=== PATIENT | female | born 1950 | race Caucasian/White ===

== ENCOUNTER → 2018-03-16 | Outpatient (CLI) | payer OTHER ==
[2018-03-16 08:13] LABS: HEMATOCRIT 46.8 % (37.0-47.0); HEMOGLOBIN 15.6 gm/dL (12.0-15.0); MCH 30.9 pg (26.0-34.0); MCHC 33.2 g/dL (28.0-37.0); MCV 92.9 fL (80.0-100.0); RBC 5.04 mil/uL (4.20-5.00); RDW 14.5 % (10.5-14.5); WBC 7.2 thou/uL (4.0-11.0)
[2018-03-16 08:38] LABS: POTASSIUM 4.4 mmol/L (3.5-5.1)
[2018-03-16 08:44] LABS: ALBUMIN 4.1 g/dL (3.4-5.0); TOTAL BILIRUBIN 1.3 mg/dL (<0.1-1.0); TOTAL PROTEIN 7.5 g/dL (6.4-8.2)
== END ==
LOC: CAT 05:53
PROVIDERS: Internal Medicine Cardiovascular Disease
DX: I48.91 Unspecified atrial fibrillation (principal); I70.8 Atherosclerosis of other arteries; N28.1 Cyst of kidney, acquired

== ENCOUNTER 2018-03-19 06:35 | Observation (INO) | payer OTHER ==
[~2018-03-19] VITALS: Ht 167.6 cm; Wt 95.3 kg
[2018-03-19] VITALS (13 sets, daily range): BP systolic 113–138; BP diastolic 72–90
--- NOTE | ~2018-03-19 | D ---
[facility] [place] [address] DISCHARGE SUMMARY Name: EFRAIN BELL Room #: 207-P [facility] Chrissie Benitez#: [id number] Admission: 03/19/18 Attend Phys: Chema Turner MD Discharge: 03/21/18 Date of : 52 Report #: [id number] THIS REPORT FOR: //name// CC: Chema MOTLEY DATE OF SERVICE: 03/21/2018 DISCHARGE DIAGNOSES: 1. Acute inferolateral myocardial infarction. 2. Persistent atrial fibrillation. 3. Hypertension. 4. Dyslipidemia. 5. Diabetes. HISTORY OF PRESENT ILLNESS: The patient is a 67-year-old woman with multiple cardiac risk factors including hypertension, diabetes and dyslipidemia. She was admitted for an ablation of her atrial fibrillation, and shortly after induction of anesthesia, she developed inferolateral ST elevation. Urgent coronary angiography was undertaken, which demonstrated a severe distal right coronary stenosis, which was stented with a 3.0 mm Integrity bare metal stent. Her post-procedural course was uneventful. Troponin levels were 0. Her ejection fraction was normal. DISCHARGE MEDICATIONS: Include aspirin 81 mg daily, Lipitor 40 mg daily, diltiazem CD 240 mg daily, lisinopril 20 mg daily, metoprolol succinate 100 mg daily, Brilinta 90 mg twice daily for 1 month, Cardizem-CD 240 mg daily and Xarelto 20 mg daily. Follow up with Dr. Millard at [facility] in 1 month. Follow up with Dr. Chema Turner in 3 months. DISCHARGE DIET: Low fat, low cholesterol, prudent diabetic diet. Discharge arrangements were made for outpatient cardiac rehabilitation at [facility]. DISCHARGE CONDITION: Stable and improved. <ELECTRONICALLY SIGNED> By: Robert Monroy MD, [facility] 03/25/18 0733 0823 0847 Robert Monroy MD, FAC /nt
--- NOTE | ~2018-03-19 | EKG ---
[address] [address] ELECTROCARDIOGRAM REPORT Name: EFRAIN BELL Room #: 207-[facility] M.R.#: [id number] Admission: 03/19/18 Attend Phys: Chema Turner MD Discharge: Date of : 52 Report #: [id number] THIS REPORT FOR: //name// [facility] Test Date: 2018-03-20 Test Time: 08:48:27 Pat Name: EFRAIN BELL Department: Room: 207 P Gender: F Student Driving Instructor: ЕКАТЕРИНА : 1950 Requested By: Robert Monroy Order Number: [id number] MD: Robert Monroy Measurements Intervals [place] Rate: 106 P: [place]: QRS: -31 QRSD: 85 T: 37 QT: 344 QTc: 457 Interpretive Statements Atrial fibrillation Left axis deviation Abnormal R-wave progression, late transition Possible inferior infarct, age indeterminate Compared to ECG 03/19/2018 13:10:19 No significant change was found Electronically Signed On 03-20-2018 12:22:34 CDT by Robert Monroy [email or web address] <ELECTRONICALLY SIGNED> By: Robert Monroy MD, [facility] 03/20/18 1222 0848 0848 Robert Monroy MD, [facility] /EPI
--- NOTE | ~2018-03-19 | CATHLAB ---
[facility] [address] [place] [address] INVASIVE PROCEDURE REPORT Name: EFRAIN BELL Room #: 207-P ADM IN .R.#: [id number] Admission: 03/19/18 Attend Phys: Chema Turner Discharge: Date of : 52 Date of Service: 03/19/18 1548 Report #: [id number] THIS REPORT FOR: //name// APPROVED REPORT Study performed: 03/19/2018 08:44:57 Patient Details Patient Status: Out-Patient Room #: The patient is a 67 year-old female Event Personnel Robert Monroy Fruit Dryer, Tia Thakkar, Melissa Lewis RTR, JUAN PABLO QuigleyubEloina Wes RN Indication STEMI (>0 to less than or equal to 6 hours) Risk Factors Dysplipidemia , Hypercholesterolemia, Hypertension, Diabetes Procedure Narrative The patient was brought electively to the Cardiac Catheterization Laboratory and was prepped and draped in a sterile manner. A 6 fr sheath sheath was inserted into the RFA. Coronary angiography was performed using coronary diagnostic catheters. The right coronary system was accessed and visualized with a JR 4 catheter. The left coronary system was accessed and visualized with a JL 4 catheter. The left ventricle was accessed and visualized with a Pigtail catheter. Left ventricular/Aortic Valve gradient assessed via catheter pullback. Left ventriculogram was performed in LAYNE projection. Closure device was deployed with a 6 Fr Mynx. The patient tolerated the procedure well and there were no complications associated with the procedure. There was no hematoma. Fluoro Time: 13.7 minutes Dose: DAP 3358.42 cGycm2 570 mGy Contrast Type and Amount: Visipaque 250 Coronary Angiography The patient's coronary anatomy is right dominant. Diagnostic Cath Left Main Normal left main LAD Mild scattered plaquing [facility] [address] [place] [address] INVASIVE PROCEDURE REPORT Name: EFRAIN BELL Room #: 207-P ADM IN M.R.#: [id number] Admission: 03/19/18 Attend Phys: Chema Turner Discharge: Date of : 52 Date of Service: 03/19/18 1548 Report #: [id number] Circumflex 30-40% proximal circumflex stenosis OM1 Small and angiographically normal Right Coronary Dominant right coronary with distal 85% stenosis. Hazy appearance suggesting thrombus R PDA Large and angiographically normal RPLV Normal Left Ventriculography The left ventricle is normal in size with normal contractility. The left ventricular ejection fraction is estimated to be 55-60%. Left ventricular wall motion abnormalities are not present. There is no mitral insufficiency. Hemodynamics The aortic pressure is 97/67 mmHg with a mean of 80 mmHg. The left ventricular pressure is 137/37 mmHg with a mean of mmHg. The left ventricular end diastolic pressure is 48 mmHg. PCI Technique Lesion Anticoagulation was achieved with Heparin, Integrilin. Patient was preloaded with Brillinta. Percutaneous coronary intervention was performed on the distal right coronary artery. The lesion stenosis prior to intervention was 90% with BERYL 3 flow. A 6 fr JR 4 Launcher Guide Catheter was used to engage the right coronary ostium. A Luge wire Interventional Guidewire was used to cross the lesion. BALLOON DILATION A Balloon catheter Euphora 3.0 x 12 was inserted and inflated up to 14atm for 31seconds. Repeat angiography revealed the following post-dilatation results: Moderate residual stenosis. STENT DEPLOYMENT A BMS stent Integrity 3.0 x 12 was inserted and inflated up to 18atm for 37seconds. A second Luge wire was used as a josiah wire to deliver the stent distally. Final angiography reveals 0 % stenosis with BERYL 3 flow. Conclusion 1. Normal global and regional systolic function. EF 60% 2. Normal left main 3. Mild LAD plaquing 4. 30-40% proximal circumflex stenosis 5. Severe distal RCA stenosis treated with 3.0 x 12mm Integrity bare metal stent [address] [address] INVASIVE PROCEDURE REPORT Name: ARABELLAEFRAIN Room #: 207-P [facility] M.R.#: [id number] Admission: 03/19/18 Attend Phys: Chema Turner Discharge: Date of : 52 Date of Service: 03/19/18 1548 Report #: [id number] Recommendations Cardiac Rehabilitation Referral Aggressive Medical Therapy <ELECTRONICALLY SIGNED> By: Robert Monroy MD, [facility] 03/19/18 1548 1548 1548 Robert Monroy MD, [facility] /INF
--- NOTE | ~2018-03-19 | HC ---
[facility] [place] [address] CONSULTATION Name: EFRAIN BELL Room #: 207-P [facility] M.R.#: [id number] Admission: 03/19/18 Attend Phys: Chema Turner MD Discharge: Date of : 52 Report #: [id number] THIS REPORT FOR: //name// CC: Chema MOTLEY REASON FOR CONSULTATION: Myocardial infarction. HISTORY OF PRESENT ILLNESS: The patient is a 67-year-old woman with history of hypertension and diabetes. She is a patient of Dr. Chema Turner and was admitted today for atrial fibrillation ablation. Shortly after induction of anesthesia, she developed 6-[address] elevation. I was asked to see her in the EP lab emergently. She was hypotensive. There is no prior cardiac history. She had a nonischemic stress study in November of 2017. Her ejection fraction has been described as normal. ALLERGIES: There are no known drug allergies. MEDICATIONS: Include diltiazem CD 120 mg daily, lisinopril 20 mg daily, metformin 750 mg twice daily, Toprol-XL 100 mg daily, Xarelto 20 mg daily and atorvastatin 40 mg daily. PAST MEDICAL HISTORY: Medical records have been reviewed and include history of atrial fibrillation, type 2 diabetes, hypertension, dyslipidemia, colonic polypectomy. SOCIAL HISTORY: She is a former smoker, 20 pack years, not recently. FAMILY HISTORY: Unremarkable for premature coronary disease. REVIEW OF SYSTEMS: Not obtainable. PHYSICAL EXAMINATION: GENERAL: Reveals a comatose, intubated woman. VITAL SIGNS: Blood pressure is 135/82, heart rate of 96, temperature is 97.2 degrees. HEENT: There are neither xanthelasma, subcutaneous xanthomata, oral mucosal or digital cyanosis or kyphoscoliosis present. CHEST: Clear to auscultation and percussion. CARDIAC: Reveals an irregularly irregular rhythm with normal S1, S2. ABDOMEN: Soft and nontender. EXTREMITIES: Without edema. Radial pulses are 2+. NEUROLOGIC: She is comatose, intubated under general anesthesia. EKG demonstrates atrial fibrillation with extensive anterolateral injury pattern. [address] [address] CONSULTATION Name: EFRAIN BELL Room #: 207-P [facility]..#: [id number] Admission: 03/19/18 Attend Phys: Chema Turner MD Discharge: Date of : 52 Report #: [id number] LABORATORY DATA: Sodium is 139, potassium 4.0, creatinine 0.7. Troponin of 0. White count 8.2, hemoglobin 15, hematocrit 46, platelet count 197. IMPRESSION: 1. Acute inferolateral myocardial infarction. 2. Permanent atrial fibrillation, persistent. 3. Diabetes. 4. Hypertension. 5. Dyslipidemia. RECOMMENDATIONS: Urgent coronary angiography with probable intervention. The procedure was discussed with the patient's family in detail. They gave full written consent as the patient was unable to do so in this emergent setting. 62 minutes of critical care time ([id number]). <ELECTRONICALLY SIGNED> By: Robert Monroy MD, FACC 03/19/18 1533 1009 1419 Robert Monroy MD, FACC /nt
--- NOTE | ~2018-03-19 | EKG ---
[address] [address] ELECTROCARDIOGRAM REPORT Name: EFRAIN BELL Room #: 207-P [facility]..#: [id number] Admission: 03/19/18 Attend Phys: Chema Turner MD Discharge: Date of : 52 Report #: [id number] THIS REPORT FOR: //name// [facility] Test Date: 2018-03-19 Test Time: 13:10:19 Pat Name: EFRAIN BELL Department: Room: [facility] Gender: F Restaurant Shift Supervisor: Brien GARCIA : 1950 Requested By: Robert Monroy Order Number: [id number] MD: Robert Monroy Measurements Intervals [place] Rate: 84 P: [place]: QRS: 15 QRSD: 83 T: 77 QT: 382 QTc: 452 Interpretive Statements Atrial fibrillation Ventricular premature complex Abnormal R-wave progression, late transition Minimal ST elevation, inferior leads No previous ECG available for comparison Electronically Signed On 03-19-2018 17:27:19 CDT by Robert Monroy [email or web address] <ELECTRONICALLY SIGNED> By: Robert Monroy MD, [facility] 03/19/18 1727 09 09 Robert Monroy MD, [facility] /EPI
[2018-03-19] MEDS ORDERED: VITAMIN D3400 UNIT PO (06:53)
[2018-03-19] MEDS ORDERED: GLUCOPHAGE XR750 MG PO (06:53)
[2018-03-19] MEDS ORDERED: CARTIA XT120 M1 PO (06:54)
[2018-03-19] MEDS ORDERED: LISINOPRIL20 MG PO (06:54)
[2018-03-19] MEDS ORDERED: XARELTO20 MG PO (06:55)
[2018-03-19] MEDS ORDERED: TOPROL XL100 MG PO (06:55)
[2018-03-19] MEDS ORDERED: ATORVASTATIN CA40 MG PO (06:55)
[2018-03-19 07:21] LABS: ABSOLUTE NEUTROPHILS 4.4 thou/uL (1.4-8.2); EOSINOPHILS 4.1 % (0.0-3.0); HEMATOCRIT 46.5 % (37.0-47.0); HEMOGLOBIN 15.5 gm/dL (12.0-15.0); MCH 30.9 pg (26.0-34.0); MCHC 33.3 g/dL (28.0-37.0); MCV 92.8 fL (80.0-100.0); MONOCYTES 7.5 % (1.0-8.0); PLATELET COUNT 197 thou/uL (150-400); POLYS 53.4 % (36.0-66.0); RBC 5.01 mil/uL (4.20-5.00); RDW 14.3 % (10.5-14.5); WBC 8.2 thou/uL (4.0-11.0)
[2018-03-19 07:27] LABS: CREATININE 0.9 mg/dL (0.6-1.0); POTASSIUM 3.5 mmol/L (3.5-5.1)
[2018-03-19 07:32] LABS: APTT 32.1 Seconds (24.5-32.8); INR 1.1; PROTIME 11.1 Seconds (9.3-11.4)
[2018-03-19 07:33] LABS: ALBUMIN 4.2 g/dL (3.4-5.0); TOTAL BILIRUBIN 1.9 mg/dL (<0.1-1.0); TOTAL PROTEIN 8.1 g/dL (6.4-8.2)
[2018-03-19 08:52] LABS: BE(vivo) -0.2 mmol/L (-2 to +3); HCO3 23.5 mmol/L (22.0-26.0); PCO2 35.6 mmHg (35.0-45.0); PO2 444.8 mmHg (80.0-100.0); pH 7.437 (7.360-7.450); sO2 99.9 % (92.0-98.0)
[2018-03-19 09:01] LABS: ANION GAP 8 mmol/L (7-16); BUN 18 mg/dL (7-18); CALCIUM 9.5 mg/dL (8.5-10.1); CHLORIDE 108 mmol/L (98-107); CO2 23 mmol/L (21-32); CREATININE 0.7 mg/dL (0.6-1.0); GLUCOSE 165 mg/dL (74-106); SODIUM 139 mmol/L (136-145)
[2018-03-19 09:11] LABS: TROPONIN-I < 0.04 ng/mL (<0.06)
[2018-03-20] VITALS (8 sets, daily range): BP systolic 111–126; BP diastolic 64–84
[2018-03-20 04:42] LABS: HEMATOCRIT 40.3 % (37.0-47.0); HEMOGLOBIN 13.7 gm/dL (12.0-15.0); MCH 31.3 pg (26.0-34.0); MCHC 33.9 g/dL (28.0-37.0); MCV 92.2 fL (80.0-100.0); RBC 4.37 mil/uL (4.20-5.00); RDW 14.3 % (10.5-14.5); WBC 8.6 thou/uL (4.0-11.0)
[2018-03-20 05:05] LABS: ALBUMIN 3.1 g/dL (3.4-5.0); ANION GAP 9 mmol/L (7-16); BUN 13 mg/dL (7-18); CALCIUM 8.9 mg/dL (8.5-10.1); CHLORIDE 108 mmol/L (98-107); CHOLESTEROL 97 mg/dL (<200); CO2 24 mmol/L (21-32); CREATININE 0.7 mg/dL (0.6-1.0); GLUCOSE 101 mg/dL (74-106); HDL CHOLESTEROL 42 mg/dL (>40); LDL CHOLESTEROL 43 mg/dL (<100); POTASSIUM 3.4 mmol/L (3.5-5.1); SERUM ASSESSMENT Clear; SGOT 20 U/L (15-37); SGPT 28 U/L (30-65); SODIUM 141 mmol/L (136-145); TC:HDL 2.3 Ratio (Not establshd); TOTAL PROTEIN 6.2 g/dL (6.4-8.2); TRIGLYCERIDE 60 mg/dL (<150); TROPONIN-I < 0.04 ng/mL (<0.06); VLDL 12 mg/dL (<40)
[2018-03-21 04:59] VITALS: BP 129/89
[2018-03-21 07:00] VITALS: BP 122/80
[2018-03-21] MEDS ORDERED: BRILINTA90 MG PO (08:14)
[2018-03-21] MEDS ORDERED: ASPIR 8181 MG PO (08:21)
[2018-03-21 08:43] VITALS: BP 133/90
[2018-03-21 10:56] VITALS: BP 113/72
[2018-03-21 12:06] VITALS: BP 111/73
== END 2018-03-21 14:39 | disposition home or self-care (01) ==
LOC: CATH 06:35 → 2N 06:45 → CATH 08:15 → 2N 03-21 14:39
PROVIDERS: Internal Medicine; Internal Medicine Cardiovascular Disease
DX: I21.19 ST elevation (STEMI) myocardial infarction involving other coronary artery of inferior wall (principal); I48.1 Persistent atrial fibrillation; I10 Essential (primary) hypertension; D68.59 Other primary thrombophilia; E78.5 Hyperlipidemia, unspecified; M10.9 Gout, unspecified; E11.65 Type 2 diabetes mellitus with hyperglycemia; F32.9 Major depressive disorder, single episode, unspecified; Z87.891 Personal history of nicotine dependence; Z82.49 Family history of ischemic heart disease and other diseases of the circulatory system
CPT/HCPCS: 62110; 62900; 65020; 65040; 70005